=== PATIENT | male | born 1955 | race Caucasian/White ===

== ENCOUNTER → 2020-01-25 | Outpatient (CLI) | payer OTHER ==
[~2020-01-25] MED LIST: LOVASTATIN 20 M20 MG PO; PREDNISONE50 MG PO
== END ==
LOC: MRI 10:00
DX: M51.16 Intervertebral disc disorders with radiculopathy, lumbar region (principal); M47.26 Other spondylosis with radiculopathy, lumbar region

== ENCOUNTER → 2020-12-13 | Outpatient (CLI) | payer OTHER ==
[~2020-12-13] MED LIST changes: +FLAX SEED OIL1000 MG PO; +GLUCOSAMINE CH1 EAC8 PO; +LIPITOR 10 MG10 M1 PO; +VITAMIN C500 M1 PO; +ZINC50 M2 PO
== END ==
LOC: LAB 12-11 11:03
PROVIDERS: ATTEND Specialist
DX: Z01.812 Encounter for preprocedural laboratory examination (principal); Z20.822 Contact with and (suspected) exposure to COVID-19

== ENCOUNTER → 2020-12-18 | Outpatient (CLI) | payer OTHER ==
[~2020-12-18] VITALS: Ht 177.8 cm; Wt 79.4 kg
--- NOTE | 2020-12-18 15:20 | P ---
[facility] [address] PROCEDURE REPORT Name: OLGA MARTINS Room #: REG SULEMAN Bernabe#: [id number] Admission: 12/18/20 Attend Phys: Chidi Nation Discharge: Date of : 51 Report #: [id number] THIS REPORT FOR: cc: Rafael Kaplan MD, Rene P. MD McElhinney, Christian C. MD ~ DATE OF SERVICE: 12/18/2020 PROCEDURE PERFORMED: Colonoscopy with biopsies. HISTORY OF PRESENT ILLNESS: The patient is a 65-year-old male with a history of colon polyps, here for 5-year followup. Denies any symptoms. No family history of colon cancer. DESCRIPTION OF PROCEDURE: The risks and benefits of the procedure were explained to the patient, those risks including but not limited to bleeding, perforation and the risk of sedation. He understood these risks and gave informed consent. Sedation was given using propofol per anesthesia. Next, a digital rectal exam was initially performed, which was normal. Next, using a standard Olympus colonoscope, the scope was placed in the patient's anus and advanced under direct vision to the cecum. The overall prep was good. Cecum and ileocecal valve were normal in appearance. Ascending and transverse colon are normal. In the descending colon, a 4 mm sessile polyp was noted. This was removed with cold forceps, otherwise normal. The sigmoid colon was normal. The rectal mucosa was normal. On retroflexion, small nonbleeding internal hemorrhoids were noted. The scope was then withdrawn and the procedure terminated. The patient tolerated the procedure well. IMPRESSION: 1. Small descending colon polyp. 2. Small internal hemorrhoids. 3. Otherwise, normal colonoscopy. RECOMMENDATIONS: 1. Await biopsy results. 2. If polyp is hyperplastic, repeat in 10 years; if adenomatous polyp, repeat in 5 years. Thank you for allowing me to participate in his care. <ELECTRONICALLY SIGNED> By: Chidi Tolentino MD 12/18/20 1520 1053 [id number] Chidi Tolentino MD /nt
--- NOTE | 2020-12-23 15:07 | PATH ---
[facility] [address] [place] [address] PATHOLOGY RPT PROCEDURE Name: DAVIE BRANDT Room #: REG [facility] [place].#: [id number] Admission: 12/18/20 Date of : 51 Discharge: Report #: [id number] Path Case #: [id number] [facility] Accession Number: [id number] . 01 Material submitted: . colon - DESCENDING COLON POLYP. Modifiers: descending . 01 Clinical history: . HX OF POLYPS COLON POLYP, INTERNAL HEMORRHOIDS . 02 Diagnosis: Polyp, descending colon polyp, endoscopic biopsy: - Tubular adenoma. - Negative for high-grade dysplasia. (IUV:janitorial assistant; 12/23/2020) MBR 12/23/2020 1203 Local . 02 Electronically signed: . Barbra Alves MD, Pathologist NPI- [id number] . 01 Gross description: . The specimen is received in formalin, labeled "Davie Brandt, biopsy descending colon polyp". Received are two segments of pale nagy soft tissue ranging in size from 0.4 to 0.5 cm in maximum dimensions. The specimen is submitted entirely in cassette A1. (CAA; 12/20/2020) QAC/QAC 12/20/2020 1036 Local . 02 Pathologist provided ICD-10: D12.4 . 02 CPT . 679747 Specimen Comment: A courtesy copy of this report has been sent to [phone] Specimen Comment: [phone] Specimen Comment: Report sent to / DR AMBROCIO Performed at: [address], [place] [id number] MD Jonah Gamboa MD Phone: [phone] Performed at: [address] [id number] MD Barbra Alves MD Phone: [phone]
== END | disposition home or self-care (01) ==
LOC: GI 09:04
PROVIDERS: ATTEND Specialist
DX: Z12.11 Encounter for screening for malignant neoplasm of colon (principal); Z86.010 Personal history of colon polyps; D12.3 Benign neoplasm of transverse colon; K64.8 Other hemorrhoids; E78.5 Hyperlipidemia, unspecified; Z98.890 Other specified postprocedural states; Z79.899 Other long term (current) drug therapy; Z91.040 Latex allergy status; Z88.8 Allergy status to other drugs, medicaments and biological substances
CPT/HCPCS: 62110; 62900